=== PATIENT | male | born 1950 | race Two or more races ===

== ENCOUNTER 2024-12-16 11:16 | Emergency (ER) | payer MEDICARE, BC, SELFPAY ==
[2024-12-16] VITALS (9 sets, daily range): BP systolic 122–143; BP diastolic 84–105; PULSE 132–140; RESP 18–19; TEMP 36.8–37.5; O2SAT 94–97; BMI 40.8
--- NOTE | 2024-12-16 11:50 | XR_ITS ---
Examination PA lateral chest 2 views TECHNIQUE: Upright PA lateral chest 2 views Date and time: December 16, 2024 1210 hours INDICATIONS: Chest pain one week FINDINGS: Normal heart size. Lungs are clear. The osseous structures are intact IMPRESSION: No active disease
--- NOTE | 2024-12-16 11:50 | EKG_ITS ---
[facility] Test Date: 2024-12-16 Pat Name: FRANKO SHELBY Department: Room: - Gender: Male Launch Leader: : 1950 Requested By: Yuriy Obando Order Number: [id number] Reading MD: Yuriy Obando Measurements Intervals [place] Rate: 142 P: [place]: QRS: -17 QRSD: 86 T: 13 QT: 262 QTc: 403 Interpretive Statements ATRIAL FLUTTER/TACHYCARDIA WITH RAPID VENTRICULAR RESPONSE MODERATE ST DEPRESSION [0.05+ mV ST DEPRESSION] No previous ECG available for comparison /store/S0/[id number].pdf
--- NOTE | 2024-12-16 12:02 | PD.EDADULT ---
ED General RME/HPI General Chief complaint: General Adult/Misc Complain Stated complaint: GEN. PAIN/CRAMPING OVER BODY, 02/13 Time Seen by Provider: 12/16/24 11:29 Arrival date/time: 12/16/24 11:16 Limitations: no limitations RME / HPI RME / HPI narrative: 74-year-old with history of A-fib and hypertension presents for evaluation of chest wall pain x1 month. He describes it as intermittent spasms that are worse with movement. He denies substernal chest pain, shortness of breath, nausea, jaw pain, swelling, abdominal pain. Patient notes bilateral hip pain for which he is pending an appointment with orthopedics on Friday. Patient was recently seen by primary care and started on baclofen for the symptoms and reports he took the first dose today. Patient reports that he is on amiodarone and Eliquis for his A-fib and has been compliant with medications. Patient reports history of intermittent a flutter on past cardiac evaluation. Patient denies recent travel, recent illness, known sick contacts. Associated symptoms: denies other symptoms Treatments prior to arrival: none Related Data Previous Rx's ?Medication ?Instructions ?Recorded metoprolol succinate 50 mg 50 mg PO QDAY tachycardia #10 tabs 12/16/24 tablet,extended release 24 hr Allergies Allergy/AdvReac Type Severity Reaction Status Date / Time No Known Allergies Allergy Verified 12/16/24 11:22 Review of Systems Constitutional Constitutional: Denies body ache(s), Denies chills, Denies headache(s), Denies lethargy, Denies night sweats and Denies weakness Eyes Eyes: Denies blurry vision and Denies change in vision ENT Ears, Nose, Mouth, and Throat: Denies disequilibrium, Denies dizziness, Denies headache(s), Denies neck pain and Denies vertigo Cardiovascular Cardiovascular: Reports chest pain, Denies diaphoresis, Denies dyspnea, Denies dyspnea on exertion, Denies irregular heart rhythm, Denies leg edema and Denies palpitations Respiratory Respiratory: Denies cough, Denies dyspnea, Denies dyspnea on exertion, Denies hemoptysis, Denies pain with cough and Denies wheezing Gastrointestinal Gastrointestinal: Denies abdominal pain, Denies hematemesis, Denies nausea and Denies vomiting Genitourinary Genitourinary: Denies dysuria and Denies hematuria Musculoskeletal Musculoskeletal: Denies abnormal gait, Reports back pain, Denies myalgias, Denies neck pain, Denies numbness and Reports other (bilateral superior hip pain. ) Integumentary/Breasts Skin/Breast: Denies lesions and Denies wounds Neurologic Neurologic: Denies abnormal gait, Denies convulsions, Denies disequilibrium, Denies dizziness, Denies headache(s), Denies numbness, Denies vertigo and Denies weakness Endocrine Endocrine: Denies palpitations Allergic/Immunologic Allergic/Immunologic: Denies wheezing Past Medical History Past Medical History CARDIAC: Positive Atrial Fibrillation and Hypertension; Negative Congestive Heart Failure RESPIRATORY: Negative Chronic Obstructive Pulmonary Disease (COPD) GENITOURINARY: Negative Renal Disease ENDOCRINE: Negative Diabetes Mellitus Type 1 or Diabetes Mellitus Type 2 Social History SMOKING STATUS: Never smoker ED Exam General Limitations: Present no limitations General appearance: Present alert and in no apparent distress Head Head exam: Present atraumatic and normocephalic Eye Eye exam: Present normal appearance and EOMI ENT ENT exam: Present mucous membranes moist Neck Neck exam: Present normal inspection and full ROM Chest Chest inspection: Present normal inspection and symmetric chest wall rise; Absent tenderness Respiratory Respiratory exam: Present normal lung sounds bilaterally; Absent respiratory distress or wheezes Cardiovascular Cardiovascular exam: Present tachycardia; Absent normal heart sounds Abdominal Exam Abdominal exam: Present soft; Absent distention or tenderness Extremities Exam Extremities exam: Present normal inspection and full ROM Back Exam Back exam: Present normal inspection; Absent full ROM Neurological Exam Neurological exam: Present alert Expanded Neurological Exam Speech: Present fluid speech Cerebellar function: Present normal gait Psychiatric Psychiatric exam: Present normal affect Skin Skin exam: Present warm and dry Course Quality Measures none Orders Category Date Time Status Group Chief Operator Q4H START 00 Care 12/16/24 12:15 Completed EKG (ED ONLY) *Do not use* NOW Care 12/16/24 11:50 Completed EKG (ED Only) Stat Exams 12/16/24 11:50 Draft XR chest 2V Stat Exams 12/16/24 11:50 Completed B-Type Natriuretic Peptide Stat Lab 12/16/24 12:35 Completed CBC Stat Lab 12/16/24 12:35 Completed Comprehensive Metabolic Panel Stat Lab 12/16/24 12:35 Completed Drug Screen,Urine Stat Lab 12/16/24 14:01 Completed Free T3 Stat Lab 12/16/24 12:35 Completed Free T4 (Free Thyroxine) Stat Lab 12/16/24 12:35 Completed LDH (Lactate Dehydrogenase) Stat Lab 12/16/24 12:35 Completed Magnesium Stat Lab 12/16/24 12:35 Completed Partial Thromboplastin Time Stat Lab 12/16/24 12:35 Completed Prothrombin Time with INR Stat Lab 12/16/24 12:35 Completed Thyroid Stimulating Hormone Stat Lab 12/16/24 12:35 Completed Troponin I Stat Lab 12/16/24 12:35 Completed Urinalysis Stat Lab 12/16/24 14:01 Completed Amiodarone [Cordarone] Med 12/16/24 14:38 Discontinued 100 mg PO X1 ONE HYDROcodone*/APAP 5/325 [Fate 5/325] Med 12/16/24 13:35 Discontinued 1 tab PO X1 ONE Metoprolol Tartrate [Lopressor] Med 12/16/24 12:15 Discontinued 25 mg PO X1 ONE Vital Signs Vital signs: Vital Signs Temperature 99.5 F 12/16/24 11:35 Pulse Rate 140 H 12/16/24 11:35 Respiratory Rate 18 12/16/24 11:35 Blood Pressure 122/84 12/16/24 11:35 Pulse Oximetry (%) 95 12/16/24 11:35 Oxygen Delivery Method Room Air 12/16/24 11:35 Pulse ox 95% on room air, within normal limits. Discharge Plan Plan Patient Disposition: HOME (Self Care) Discharge Disposition comment: stable Prescriptions/Referrals Prescriptions/Med Rec: New metoprolol succinate 50 mg tablet extended release 24 hr 50 mg PO QDAY Qty: 10 0RF Referrals: No Primary/Family,Physician [Primary Care Provider] - In 1 week Problem List Clinical Impression: Low TSH level, Chest pain, Elevated serum free T4 level Impression comment: Follow-up with primary care on Friday for further evaluation of tachycardia and low TSH with elevated T4 levels. Take metoprolol 50 mg once daily for increased heart rate. Hold prior dose of metoprolol 25 mg at this time. Continue to take the rest of your prescription medications as prescribed. Return to the ED if your symptoms worsen or change. You may take Tylenol and or ibuprofen as needed every 6 hours as needed for hip and shoulder pain. Patient/Caregiver Discharge Instructions Education Materials: Thyroid-Stimulating Hormone, Free T4, ED Chest Pain, Uncertain Cause, ED Hyperthyroidism Print Language: Polish Stand Alone Forms: Deloris Award Info., Patient Portal Info Letter PA/KM Supervising Physician ENZO Supervising Physician: Dr. Laura [facility] Narrative [facility] hospital course: 74-year-old male presented for evaluation of chest wall spasm and hip pain x 1 month. Patient tachycardic in the 140s which subtly improved in the department to 130s. Patient reports that he is normally tachycardic and is on amiodarone and low-dose metoprolol at baseline. Given patient's vital signs and vague symptoms cardiac workup was obtained which was fortunately negative for ACS but did show possible arrhythmia on EKG and persistent tachycardia. Thyroid panel was obtained which showed elevated T4, pointing towards hyperthyroid which likely is contributing to his tachycardia. This case was discussed extensively with who advised to give him a dose of amiodarone in the department and increase his metoprolol dose until he can follow-up outpatient with his home property consultant as he is visiting from out of town. Patient was given IV fluids and I personally discussed extensively with the patient the need for him to follow-up with his primary care and property consultant for persistent tachycardia and elevated thyroid within the next 24 hours. I was in the room with the patient whenever he called his primary care office to try to schedule an appointment tomorrow. I strongly advised the patient to return to the ED immediately should he develop chest pain, shortness of breath, abdominal pain, nausea, or any worsening or change in his symptoms. Ultimately the patient was discharged home with an increase in his metoprolol dose and plan to follow-up closely outpatient. Clinical Information Provided by none Medical Records Reviewed None and [facility] Meds/Rx Considered, not Ordered None Chronic Illness/Social Conditions which may negatively complicate care or outcome(s)-explain: COPD and CHF/CAD/Cardiac illness EKG EKG Interpretation narrative: Tachycardia, rate 142, nonspecific ST changes, normal QRS interval. Lab Interpretation Labs: interpreted by wi Lab(s) interpretation(s): Hypothyroid with borderline elevated T4 at 179. No leukocytosis or anemia. No gross electrolyte abnormality or evidence of endorgan damage. Troponin negative. UA unremarkable. Tox screen negative. Imaging Imaging interpretation: interpreted by me Provider imaging interpretation(s): No pneumothorax, no consolidation, trachea midline. Radiology reports / interpretation(s): FINDINGS: Normal heart size. Lungs are clear. The osseous structures are intact IMPRESSION: No active disease Medication Administration(s) Medication Administration History Discontinued Medications Hydrocodone Bitart/Acetaminophen (Hydrocodone/Apap 5/325 Tablet) 1 tab PO X1 ONE Stop: 12/16/24 13:36 Last Admin: 12/16/24 13:59 Dose: 1 tab Documented By: EF Amiodarone HCl (Amiodarone Hcl 200 Mg Tablet) 100 mg PO X1 ONE Stop: 12/16/24 14:39 Last Admin: 12/16/24 14:48 Dose: 100 mg Documented By: EF Metoprolol Tartrate (Metoprolol Tartrate 25 Mg Tablet) 25 mg PO X1 ONE Stop: 12/16/24 12:16 Last Admin: 12/16/24 12:41 Dose: 25 mg Documented By: EF Amiodarone given. Metoprolol given and prescription sent for higher dose. Diagnosis Differential diagnosis: Thyroid storm, ACS, OR, cardiac other arrhythmia, pneumonia, heart failure. Most likely dx, and/or detailed dx discussion: Hyperthyroid with elevated T4. Tachycardia. Dispositon Disposition: Discharge Home
[2024-12-16] MEDS: METOPROLOL TARTRATE 25 MG TABLET PO (12:41)
[2024-12-16 12:50] LABS: Basophils % (Auto) 0 % (0-2.5); Eosinophils % (Auto) 0 % (0-10); Hematocrit 45.7 % (41.0-53.0); Hemoglobin 15.7 g/dL (13.5-16.0); Immature Granulocytes % (Auto) 0 % (0-0); Immature Granulocytes Auto 0.04 Thou/mm3 (0.00-0.00); Lymphocytes # (Auto) 1.3 Thou/mm3 (1.0-4.8); Lymphocytes % (Auto) 12 % (10-50); Mean Corpuscular HGB Conc 34.4 g/dl (31.0-37.0); Mean Corpuscular Hemoglobin 29.5 pg (25.0-35.0); Mean Corpuscular Volume 86 fL (80-100); Monocytes # (Auto) 0.9 Thou/mm3 (0.0-0.8); Monocytes % (Auto) 9 % (0-12); Neutrophils # (Auto) 8.1 Thou/mm3 (1.8-7.7); Neutrophils % (Auto) 78 % (37-80); Nucleated Red Blood Cell % 0 /100 WBC (0); Platelet Count 291 Thou/mm3 (140-440); RDW Standard Deviation 41.6 fL (35.1-43.9); Red Blood Count 5.32 Miln/mm3 (4.50-5.90); White Blood Count 10.4 Thou/mm3 (3.8-10.6)
[2024-12-16 13:06] LABS: B-Type Natriuretic Peptide 61 pg/mL (0-100)
[2024-12-16 13:11] LABS: Alanine Aminotransferase 12 U/L (10-49); Albumin, Serum 4.5 gm/dL (3.4-4.8); Albumin/Globulin Ratio 1.7 (1.2-2.2); Alkaline Phosphatase 57 U/L (46-116); Anion Gap 8 (7-16); BUN/Creatinine Ratio 13 Ratio (12-20); Bilirubin,Total 0.9 mg/dL (0.3-1.2); Blood Urea Nitrogen 15 mg/dL (9-23); Calcium 9.3 mg/dL (8.3-10.6); Calcium (Corrected) 9.3 mg/dL (8.5-10.1); Carbon Dioxide 28.5 mMol/L (20.0-31.0); Chloride 104 mMol/L (98-107); Creatinine (Component) 1.2 mg/dL (0.6-1.3); Estimated Creatinine Clearance 68.5 mL/min (>60); Globulin 2.6 gm/dL (2.3-3.5); Glucose 112 mg/dL (74-106); LDH (Lactate Dehydrogenase) 192 U/L (120-246); Magnesium 2.2 mg/dL (1.6-2.6); Osmolality,Calculated 281 (275-295); Potassium 4.1 mMol/L (3.4-5.1); Sodium 140 mMol/L (136-145); Thyroid Stimulating Hormone 0.37 uIU/mL (0.55-4.78); Total Protein 7.1 gm/dL (5.7-8.2); Troponin I < 0.020 ng/mL (0.0-0.045); eGFR > 60 See Note
[2024-12-16 13:34] LABS: INR 1.1 (0.9-1.3); Partial Thromboplastin Time 32.7 Seconds (22.0-36.0); Prothrombin Time 12.2 Seconds (9.0-12.2)
[2024-12-16] MEDS: HYDROcodone/APAP 5/325 TABLET 1 TAB PO (13:59)
[2024-12-16 14:06] LABS: Collection Type, Urine Clean Catch; Squamous Epithelial Cell,Urine 0 /hpf (0-5)
[2024-12-16 14:18] LABS: Free T3 2.3 pg/mL (2.3-4.2); Free T4 (Free Thyroxine) 1.79 ng/dL (0.89-1.76)
[2024-12-16 14:21] LABS: Amphetamine/Methamp Scrn,U Negative (Negative); Barbiturate Screen,Urine Negative (Negative); Benzodiazepines Screen,Urine Negative (Negative); Benzoylecgonine Screen, Ur Negative (Negative); Fentanyl Screen,Urine Negative (Negative); Opiate Screen,Urine Negative (Negative); THC Screen,Urine Negative (Negative)
[2024-12-16] MEDS: AMIODARONE HCL 200 MG TABLET 100 MG PO (14:48)
[2024-12-16 14:53] LABS: Bacteria,Urine Rare; Bilirubin,Urine Negative (Negative); Blood,Urine Negative (Negative); Clarity,Urine Clear (Clear/Hazy); Color,Urine Yellow (Lt Yel-Yel); Glucose, Urine Negative (Negative); Ketones,Urine Negative (Negative); Leukocyte Esterase,Urine Negative (Negative); Nitrite,Urine Negative (Negative); Protein,Urine Trace (Neg - Trace); RBC,Urine 2 /hpf (0-3); Specific Gravity,Urine 1.024 (1.001-1.035); Urobilinogen,Urine Negative mg/dL (0.0-1.0); WBC,Urine 1 /hpf (0-5)
--- NOTE | 2024-12-16 17:32 | PC.NURSE ---
provider informed of heart rate in 130's consistently provider okayd patient for discharge
== END 2024-12-16 17:34 | disposition home or self-care (01) ==
PROVIDERS: Physician Assistant; Emergency Provider Emergency Medicine
DX: R07.89 Other chest pain (principal); R00.0 Tachycardia, unspecified; I48.91 Unspecified atrial fibrillation; I10 Essential (primary) hypertension; J44.9 Chronic obstructive pulmonary disease, unspecified; E03.9 Hypothyroidism, unspecified
CPT/HCPCS: 36415; 71046; 80053; 80307; 81001; 83615; 83735; 83880; 84439; 84443; 84481; 84484; 85025; 85610; 85730; 93005; 99283; A9270